=== PATIENT | female | born 1955 | race Caucasian/White ===

== ENCOUNTER → 2020-01-10 | Outpatient (CLI) | payer OTHER, MEDICARE | LOC: MRI 12-22 09:37 | DX: M50.23 Other cervical disc displacement, cervicothoracic region (principal); M48.02 Spinal stenosis, cervical region; R29.898 Other symptoms and signs involving the musculoskeletal system; M54.10 Radiculopathy, site unspecified; M62.81 Muscle weakness (generalized); Z98.890 Other specified postprocedural states ==

== ENCOUNTER → 2020-04-10 | Outpatient (CLI) | payer OTHER, MEDICARE ==
[~2020-04-10] VITALS: Ht 157.5 cm; Wt 108.9 kg
[~2020-04-10] MED LIST: ALPHA LIPOIC A600 M1 PO; ASA81BEC PO; B COMPLEX1 EACH PO; BENTYL 10 MG CA10 MG PO; CATAPRES0.1 MG PO; FLUOXETINE HCL40 MG PO; HYDROCHLOROTHIA25 M2 PO; IBUPROFEN 400400 M2 PO; IRON 100 PLUS1 EACH PO; ISOSORBIDE DINI20 M2 PO; LEVEMIR100 UNIT/2 SUBQ; LYRICA100 MG PO; MAGNESIUM100 MG PO; METFORMIN HCL500 M3 PO; NORVASC10 MG PO; NOVOLIN N100 UNIT/3 IJ; OMEPRAZOLE40 MG PO; PERCOCET 10-321 EAC1 PO; REMERON 30 MG T30 MG PO; SELENIMIN200 MCG PO; SOMA350 MG PO; SPIRONOLACTONE50 MG PO; VITAMIN B-6100 MG PO; VITAMIN K240 MCG PO; XANAX1 MG PO; ZINC SULFATE220 MG PO; pregnenolone PO
[2020-04-10 12:55] VITALS: BP 120/73
--- NOTE | 2020-04-10 13:32 | NUR ---
Document wound assessment on appropriate Wound Pressure, Monitor intervention!
--- NOTE | 2020-04-10 13:37 | NUR ---
Pain Clinic Assessment: 1. History of Osteoarthritis: SPINE History of Rheumatoid Arthritis: Not Applicable 2. Height: 5 ft. 2 in. 157.5 cm. Weight: 240.0 lb. oz. 108.864 kg. Patient's BMI: 43.9 3. Vital Signs: BP: 120/73 Pulse: 100 Resp: 22 Temp: 02 Sat: 96 ECG Mon: 4. Pain Intensity: 10 5. Fall Risk: Dizziness: N Needs help standing or walking: Y Fallen in the last 3 months: Y Fall risk comments: 6. Patient on Blood Thinner: None 7. History of Hypertension: Y 8. Opioid Therapy greater than 6 weeks: Y Opiate Contract Signed: 9. Risk Assessment Tool Provided: 10. Functional Assessment Tool: 11. Recreational Drug Use: Never Drug Type: Tobacco Use: Former Smoker Tobacco Type: Amount or Packs/day: How Many Years: Alcohol Use: Past use Frequency: Quant:
== END | disposition home or self-care (01) ==
LOC: PAIN 07:01
PROVIDERS: ATTEND Anesthesiology Pain Medicine
DX: M54.12 Radiculopathy, cervical region (principal); G89.29 Other chronic pain; I10 Essential (primary) hypertension; E11.9 Type 2 diabetes mellitus without complications; F31.9 Bipolar disorder, unspecified; Z98.890 Other specified postprocedural states; Z79.899 Other long term (current) drug therapy; Z87.891 Personal history of nicotine dependence

== ENCOUNTER → 2020-05-15 | Outpatient (CLI) | payer OTHER, MEDICARE ==
[~2020-05-15] VITALS: Ht 157.5 cm; Wt 109.8 kg
[2020-05-15 13:20] VITALS: BP 138/74
--- NOTE | 2020-05-15 13:36 | NUR ---
Pain Clinic Assessment: 1. History of Osteoarthritis: SPINE History of Rheumatoid Arthritis: Not Applicable 2. Height: 5 ft. 2 in. 157.5 cm. Weight: 242.0 lb. oz. 109.771 kg. Patient's BMI: 44.3 3. Vital Signs: BP: 138/74 Pulse: 98 Resp: 22 Temp: 02 Sat: 97 ECG Mon: 4. Pain Intensity: 10 5. Fall Risk: Dizziness: N Needs help standing or walking: Y Fallen in the last 3 months: Y Fall risk comments: 6. Patient on Blood Thinner: None 7. History of Hypertension: Y 8. Opioid Therapy greater than 6 weeks: Y Opiate Contract Signed: 9. Risk Assessment Tool Provided: 7-MODERATE 10. Functional Assessment Tool: 62/70 11. Recreational Drug Use: Never Drug Type: Tobacco Use: Former Smoker Tobacco Type: Amount or Packs/day: How Many Years: Alcohol Use: Past use Frequency: Quant:
--- NOTE | 2020-05-16 11:16 | HPC ---
[facility] [place] [address] PAIN MANAGEMENT CONSULTATION Name: LEONIE ALMONTE Room #: REG LUCIA M.Haris.#: [id number] Admission: 05/15/20 Attend Phys: Tony Saavedra DO Discharge: Date of : 53 Report #: [id number] THIS REPORT FOR: cc: Leona Gray MD, Diane S. MD Johnson, James E. DO ~ DATE OF SERVICE: 05/15/2020 CHIEF COMPLAINT: Neck pain, bilateral upper extremity pain and paresthesias. HISTORY OF PRESENT ILLNESS: As you know, the patient is a 64-year-old female with longstanding history of neck pain, bilateral upper extremity pain with paresthesias. The patient indicates pain began somewhere in 09/2019, no inciting injury or trauma. She sought evaluation with Dr. Yehuda Rodriges who referred the patient to trial cervical epidural injections. She underwent a cervical epidural injection under fluoroscopic guidance at her last visit where she reports improvement in symptoms of 75%. Unfortunately, her symptoms have begun to return. She returns today in followup visit, somewhat confused, very somnolent. She is having difficulty remaining awake during our conversation. She indicates pain level of 10/10. She denies new injury or trauma. ALLERGIES: LORAZEPAM, RISPERIDONE, DICLOFENAC, GABAPENTIN, AMITRIPTYLINE, BUPROPION, METHADONE, OXCARBAZEPINE AND ABILIFY. SOCIAL HISTORY: The patient denies tobacco, alcohol, IV or illicit drug use. She is a retired computer numerical control operator, unaccompanied at today's visit. IMAGING: No new imaging. PQRS: The patient has arthritic changes of the cervical spine and lumbar spine. No rheumatoid arthritis. She is placing current pain score 10/10. She is a fall risk and has had multiple falls in the last 3 months. She is not utilizing any type of ambulatory device. She is not on blood thinners, but is treated for hypertension. She is on chronic opioids and has a akneahit-oa-wuyhhe opioid addiction potential. Pain impact of 62 of 70, severe interference of daily activities secondary to pain. PHYSICAL EXAMINATION: VITAL SIGNS: Blood pressure 138/74, pulse 98, respiratory rate 12, O2 sat 97% on room air. Height 5 feet 2 inches tall, weight 242.0 pounds, BMI calculated 44.3. GENERAL: Well-developed, well-nourished, well-hydrated, class 3, morbidly obese 64-year-old somnolent female reporting pain today at 10/10. HEENT: Normocephalic, atraumatic. Pupils are round and no anisocoria. EXTREMITIES: Show no clubbing, no cyanosis, 1+ nonpitting lower extremity [address] [address] PAIN MANAGEMENT CONSULTATION Name: LEONIE ALMONTE Room #: REG [facility] Maria G#: [id number] Admission: 05/15/20 Attend Phys: Tony Saavedra DO Discharge: Date of : 53 Report #: [id number] edema. MUSCULOSKELETAL: Lower extremity strength is symmetrical again today. She is intact to light touch from C5-T1 dermatomes. Spurling's test is negative. Cervical provocation testing met with increased pain. PSYCHOLOGICAL: The patient is somnolent, having difficulty remaining awake. She is not actively slurring words, but is drifting off during conversation. ASSESSMENT: 1. Suspected cervical radiculopathy. 2. Displacement of cervical intervertebral disk with radiculopathy. 3. Cervical spinal stenosis. 4. Neural foraminal stenosis, cervical spine. 5. Medication intolerance. PLAN: 1. The patient has returned today in followup visit having noted 75% improvement in overall pain with a cervical epidural injection provided at last visit. Unfortunately, her symptoms have begun to return. She is reporting pain today at 10/10, which is a reduction of 50% overall from her 20/10 reported pain in the last visit. She has requested next in the series of epidural injections. We have agreed to provide that injection in hopes of improving pain. We discussed with the patient the risks and benefits of a cervical epidural injection. These risks include but are not necessarily limited to bleeding, bruising, infection, worsening pain, no relief of pain, also risk of temporary or permanent muscle weakness, temporary or permanent nerve damage, possible paralysis, post-dural puncture headache and . The patient states understood and wished to proceed. 2. No medication changes made at today's visit. It would appear based on the patient's physical condition today that she is under the influence of medications. She indicates that she took a Percocet at about 130 and she is very somnolent today having difficulty remaining awake. Her respiratory rate is decreased and this would appear that she is experiencing an overdose situation with the opioids. We kept the patient in our clinic for over an hour and half today with some improvement in her condition. She was taken home by [employer], so she did not drive. We strongly suggest the patient follow up with her PCP in regards to reducing her opioid medication as this appears to be the source of her current somnolent condition. 3. We plan to see the patient back in followup visit on an as needed basis. We have requested the patient follow up with the neurosurgeon who referred her to our clinic to discuss efficacy of the cervical epidural injections and discuss her surgical options may be necessary. We will see her back in followup visit on an as needed basis. [facility] [place] [address] PAIN MANAGEMENT CONSULTATION Name: LEONIE ALMONTE Room #: REG [facility].#: [id number] Admission: 05/15/20 Attend Phys: Tony Saavedra DO Discharge: Date of : 53 Report #: [id number] PROCEDURE NOTE DESCRIPTION OF PROCEDURE: C7-T1 cervical epidural steroid injection under fluoroscopic guidance. This is the first procedure of the second series that the patient is undergoing. After obtaining written consent, the patient was taken back to the fluoroscopy suite and placed in a prone position with separate pillows under chest and forehead to decrease cervical lordosis. The skin overlying the cervical area was prepped and draped in an aseptic fashion. The C7-T1 vertebral interspace was identified by AP fluoroscopy. The skin and subcutaneous tissue overlying the target site of injection was anesthetized using 3 mL of 1% lidocaine. A 20-gauge 4-1/2 inch Tuohy needle was advanced under fluoroscopic guidance toward the epidural space using a midline approach. The epidural space was identified using a loss of resistance to air technique. After negative aspiration for heme or cerebrospinal fluid, a total of 1 mL of Omnipaque was injected. A cervical epidurogram was confirmed using AP and oblique fluoroscopy. After negative aspiration for heme or cerebrospinal fluid, 5 mL of a solution containing 2 mL 40 mg per mL, 80 mg total triamcinolone along with 3 mL of lidocaine 1% was injected in increments. Contrast spread was noted from posterior epidural space. The needle was then retracted approximately detention and the needle track was flushed with 1 mL of 1% lidocaine. There were no apparent new sensory deficits in the upper extremities present following the procedure. A sterile bandage was placed over the injection site. The heart rate, pulse oximetry and blood pressure were continuously monitored after the procedure. There were no apparent complications. The patient tolerated the procedure well and was carefully escorted in the recovery room in stable condition. After meeting discharge criteria, the patient was discharged home. <ELECTRONICALLY SIGNED> By: Tony Saavedra DO 05/16/20 [id number] Tony Saavedra DO /nt
== END ==
LOC: PAIN 06:46
PROVIDERS: ATTEND Anesthesiology Pain Medicine
DX: M48.02 Spinal stenosis, cervical region (principal); M50.10 Cervical disc disorder with radiculopathy, unspecified cervical region; R20.2 Paresthesia of skin; Z88.8 Allergy status to other drugs, medicaments and biological substances; Z79.899 Other long term (current) drug therapy; Z98.890 Other specified postprocedural states; Z87.891 Personal history of nicotine dependence

== ENCOUNTER → 2020-05-23 | Outpatient (CLI) | payer OTHER, MEDICARE ==
[2020-05-23 15:02] LABS: CREATININE 0.9 mg/dL (0.6-1.0)
== END ==
LOC: MRI 13:51
DX: R90.82 White matter disease, unspecified (principal); H53.2 Diplopia